=== PATIENT | female | born 1990 | race American Indian/Alaskan Native ===

== ENCOUNTER 2016-04-23 00:30 | Emergency (ER) | payer OTHER ==
[2016-04-23 02:10] LABS: Basophils % (Auto) 0.4 % (0.0-1.8); Eosinophils % (Auto) 2.9 % (0.0-4.3); Hematocrit 33.7 % (30.3-42.9); Hemoglobin 10.8 gm/dl (10.1-14.3); Mean Corpuscular HGB Conc 32 % (30-34); Mean Corpuscular Hemoglobin 24 pg (28-32); Mean Corpuscular Volume 76 fl (79-97); Platelet Count 268 K/mm3 (140-440); Red Blood Count 4.43 M/mm3 (3.65-5.03); Red Cell Distribution Width 13.9 % (13.2-15.2); White Blood Count 8.4 K/mm3 (4.5-11.0)
[2016-04-23 02:13] LABS: Alanine Aminotransferase 7 units/L (7-56); Albumin 3.9 g/dL (3.9-5); Albumin/Globulin Ratio 1.4 %; Alkaline Phosphatase 37 units/L (35-129); Bilirubin,Total 0.2 mg/dL (0.1-1.2); Blood Urea Nitrogen 12 mg/dL (7-17); Calcium 9.3 mg/dL (8.4-10.2); Carbon Dioxide 21 mmol/L (22-30); Chloride 102.8 mmol/L (98-107); Glucose 92 mg/dL (65-100); Lipase 51 units/L (13-60); Potassium 3.9 mmol/L (3.6-5.0); Sodium 137 mmol/L (137-145); Total Protein 6.6 g/dL (6.3-8.2)
[2016-04-23 02:16] LABS: Anion Gap 17 mmol/L
[2016-04-23 02:42] LABS: Bilirubin,Urine NEG (Negative); Blood,Urine MOD (Negative); Ketones,Urine NEG (Negative); Leukocyte Esterase,Urine NEG (Negative); Mucus,Urine FEW /HPF; Nitrite,Urine NEG (Negative); Protein,Urine <15 mg/dL mg/dL (Negative); Urobilinogen,Urine < 2.0 mg/dL (<2.0)
--- NOTE | 2016-04-23 05:48 | Ultrasound Report ---
FINAL REPORT PROCEDURE: US OB TRANSVAGINAL TECHNIQUE: Real-time transabdominal and transvaginal sonography of the uterus, placenta, amniotic fluid, adnexa, and fetus was performed with image documentation. Measurements were obtained to determine age/size. M-mode Doppler was used to document heartbeat. CPT 67929 and 84517 HISTORY: vag bleeding COMPARISON: No prior studies are available for comparison. FINDINGS: ADDITIONAL GESTATION: None. CRL: 31 mm, which corresponds to a gestational age of: 10 weeks, 0 days. Yolk Sac: Normal. Embryonic Cardiac Activity: 177 beats per minute Gestational Sac: Normal. Amniotic fluid: Normal. Cervix: Normal. Right Ovary: Normal. Left Ovary: There is a 4.5 centimeter dominant cyst on the left ovary Estimated delivery date: 11/19/2016 Uterus and adnexa: As above IMPRESSION: 1. Single live intrauterine gestation at approximately 10 weeks, 0 days. 2. EDC by US 11/19/2016 3. Complete anatomic survey at 18-20 weeks suggested.
--- NOTE | 2016-04-23 05:49 | Ultrasound Report ---
FINAL REPORT PROCEDURE: Obstetrical ultrasound, transabdominal and transvaginal TECHNIQUE: Real-time transabdominal and transvaginal sonography of the uterus, placenta, amniotic fluid, adnexa, and fetus was performed with image documentation. Measurements were obtained to determine age/size. M-mode Doppler was used to document heartbeat. CPT 53472 and 14355 HISTORY: vag bleeding COMPARISON: No prior studies are available for comparison. FINDINGS: ADDITIONAL GESTATION: None. CRL: 31 mm, which corresponds to a gestational age of: 10 weeks, 0 days. Yolk Sac: Normal. Embryonic Cardiac Activity: 177 beats per minute Gestational Sac: Normal. Amniotic fluid: Normal. Cervix: Normal. Right Ovary: Normal. Left Ovary: There is a 4.5 centimeter dominant cyst on the left ovary Estimated delivery date: 11/19/2016 Uterus and adnexa: As above IMPRESSION: 1. Single live intrauterine gestation at approximately 10 weeks, 0 days. 2. EDC by US 11/19/2016 3. Complete anatomic survey at 18-20 weeks suggested. PROCEDURE: TECHNIQUE: HISTORY: COMPARISON: FINDINGS: IMPRESSION:
--- NOTE | 2016-04-23 10:05 | Emergency Department Report ---
Chief Complaint: Abdominal Pain Stated Complaint: VAG BLEED 9 WKS PREG Time Seen by Provider: 04/23/16 10:00 - HPI History of Present Illness: 26-year-old female presents to ED complaining of vaginal spotting times yesterday. Patient states yesterday afternoon she saw mild darkish red vaginal bleeding on her underwear and when she went to wipe. Patient got scared and came to the ED to be checked. Patient states she is about 10 weeks and has opiate doctor Dr. Downing[facility]. She denies fevers/chills/vomiting/abdominal pain/shortness of breath/ chest pain or any other problems - ROS Review of Systems: As noted in HPI - Exam Vital Signs: Vital Signs 04/23/16 01:11 Temperature 98.3 F Pulse Rate 77 Respiratory 18 Rate Blood Pressure 122/71 O2 Sat by Pulse 100 Oximetry Physical Exam: GENERAL: Alert and oriented x3, no apparent distress, Normal Gait, atraumatic. NECK: Supple. Non edematous, No carotid bruits. No lymphadenopathy or thyromegaly. LUNGS: Symetrical with respiration, No wheezing, no rales or crackles, CTAB. HEART: S1, S2 present, regular rate and rhythm without murmur, no rubs, no gallops. ABDOMEN: No organomegaly was noted,Positive bowel sounds, soft, and non- distended. . Nontender to palpation on all Quadrants, NO CVA tenderness. SKIN: Warm and dry, No lesions, No ulceration or induration present. MSE screening note: Focused history and physical exam performed. Due to findings the following was ordered: ED Medical Decision Making - Lab Data Result diagrams: 04/23/16 01:41 04/23/16 01:41 - Medical Decision Making CBC, CMP within normal limits. UA within normal limits. UPT positive. Ultrasound report shows live gestation at 10 weeks with a due date of October 2016. heart tone 177 bpm. Left ovarian cyst measuring 4.5 cm seen. ED Disposition for MSE Is pt being admited?: No Does the pt Need Aspirin: No Condition: Stable Referrals: PRIMARY CARE, [Primary Care Provider] - 3-5 Days
--- NOTE | 2016-04-23 12:19 | Emergency Department Report ---
ED Female HPI - General Chief complaint: Abdominal Pain Stated complaint: VAG BLEED 9 WKS PREG Time Seen by Provider: 04/23/16 12:07 Source: patient Mode of arrival: Ambulatory Limitations: No Limitations - History of Present Illness Initial comments: 26-year-old female presents emergency department complaining of vaginal spotting. Patient states she is approximately 10 weeks and began having vaginal spotting last night. She denies abdominal pain. She reports the bleeding has stopped. There are no other complaints. MD Complaint: vaginal bleeding -: Gradual, Last night Severity scale (0 -10): 0 Consistency: now resolved Improves with: none Worsens with: none Associated Symptoms: vaginal bleeding - Related Data Sexually active: Yes : 1 Para: 0 Allergies Allergy/AdvReac Type Severity Reaction Status Date / Time No Known Allergies Allergy Verified 04/23/16 01:11 ED Review of Systems ROS: Stated complaint: VAG BLEED 9 WKS PREG Other details as noted in HPI Comment: All other systems reviewed and negative Genitourinary: as per HPI (vaginal bleeding) ED Past Medical Hx - Past Medical History Previous Medical History?: No - Surgical History Past Surgical History?: No - Family History Family history: no significant - Social History Smoking Status: Never Smoker Substance Use Type: None ED Physical Exam - General Limitations: No Limitations General appearance: alert, in no apparent distress - Head Head exam: Present: atraumatic, normocephalic - Eye Eye exam: Present: normal appearance, PERRL, EOMI - ENT ENT exam: Present: normal exam, normal orophraynx, mucous membranes moist - Neck Neck exam: Present: normal inspection, full ROM. Absent: tenderness - Respiratory Respiratory exam: Present: normal lung sounds bilaterally. Absent: respiratory distress - Cardiovascular Cardiovascular Exam: Present: regular rate, normal rhythm, normal heart sounds - GI/Abdominal GI/Abdominal exam: Present: soft, normal bowel sounds. Absent: distended, tenderness - Extremities Exam Extremities exam: Present: normal inspection, full ROM. Absent: tenderness - Back Exam Back exam: Present: normal inspection, full ROM. Absent: tenderness - Neurological Exam Neurological exam: Present: alert, oriented X3. Absent: motor sensory deficit - Skin Skin exam: Present: warm, dry, intact ED Course Vital Signs 04/23/16 01:11 Temperature 98.3 F Pulse Rate 77 Respiratory 18 Rate Blood Pressure 122/71 O2 Sat by Pulse 100 Oximetry ED Medical Decision Making - Lab Data Result diagrams: 04/23/16 01:41 04/23/16 01:41 - Radiology Data Radiology results: report reviewed ultrasound shows a single live intrauterine . - Medical Decision Making Lab and imaging results reviewed and discussed with the patient. Patient will be discharged home to follow up with her ADMISSIONS NURSE. - Differential Diagnosis vaginal bleeding, ectopic , threatened Critical care attestation.: If time is entered above; I have spent that time in minutes in the direct care of this critically ill patient, excluding procedure time. ED Disposition Clinical Impression: Vaginal bleeding in Qualifiers: Trimester: first trimester Qualified Code(s): O46.91 - Antepartum hemorrhage, unspecified, first trimester Disposition: DISCHARGED TO HOME OR SELFCARE Is pt being admited?: No Condition: Stable Instructions: (ED) Referrals: PRIMARY CARE, [Primary Care Provider] - 3-5 Days Time of Disposition: 12:19
[2016-04-23 13:42] VITALS: BP 124/78
== END 2016-04-23 13:52 | disposition home or self-care (01) ==
LOC: ED 00:30
DX: O46.91 Antepartum hemorrhage, unspecified, first trimester (principal); Z3A.10 10 weeks gestation of pregnancy
CPT/HCPCS: 36415; 76801; 76817; 80053; 81001; 81025; 83690; 85025